=== PATIENT | female | born 1940 | race Caucasian/White ===

== ENCOUNTER 2018-05-15 09:41 | Outpatient (CLI) | payer MEDICARE ==
--- NOTE | 2018-05-15 12:17 | MRI ---
PRE AND POST CONTRAST MRI BRAIN AND IACS: History: Trigeminal neuralgia. G50.0 Technique: Multiplanar, multisequence pre and post contrast enhanced MRI images of the brain and IACs and trigeminal nerves obtained. FINDINGS: Images demonstrate no evidence of acute intracranial masses, hemorrhages, strokes or contusions. No e vidence of areas of diffusion restriction seen. A small area of increased signal seen in the left centrum semiovale, likely old. 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 No evidence of abnormal areas of enhancement seen in the mid brain and ino. The internal auditory ca nals are unremarkable. The right and left facial nerves are also unremarkable. No significant abnorma lities seen. Bilateral maxillary sinus mucous retention cysts seen. Some ethmoid sinus mucosal thickening is seen. There is some moderate right to left nasal septal deviation seen. IMPRESSION: No significant evidence of intracranial pathology seen. POS: [facility]
[2018-05-15] MEDS ORDERED: Gadobenate Dimeglumine 529 MG/1 ML (20ML VIAL) ONE (13:01)
== END 2018-05-15 09:42 | disposition home or self-care (01) ==
LOC: MRI 09:41
DX: G50.0 Trigeminal neuralgia (principal)
CPT/HCPCS: 36415; 70553; 82565; A9579